=== PATIENT | female | born 1995 | race African-American/Black ===

== ENCOUNTER 2018-12-20 15:04 | Emergency (ER) | payer MEDICAID ==
[~2018-12-20] VITALS: Ht 154.9 cm; Wt 54.4 kg
[~2018-12-20 15:04] MED LIST: CIPROFLOXACIN500 M2 ORAL; IBUPROFEN200 MG ORAL; NORCO 5-325 TA1 EACH ORAL; VALIUM5 MG ORAL
[2018-12-20 15:30] VITALS: BP 110/70
--- NOTE | 2018-12-20 15:47 | NUR ---
ED Nurse Note: walked in to ED due to swelling on vaginal for 2 days. per pt, no discharge but painful pt stated that she feels a bump on her vagina, painful when pressed. will continue to monitor.
--- NOTE | 2018-12-20 16:04 | Emergency Room Report ---
History of Present Illness General Chief Complaint: Vaginal Source: Medical Record Present Illness HPI 23 YO female presents to the ED C/O 03/14 in severity swelling and tenderness to an area in the groin/vaginal area x 2 days. pt. denies fevers or chills. She denies dysuria, hematuria or urinary frequency. She denies vaginal d/c or suspicion for STI, Denies open sores or rashes. She denies suspicion for and states she is currently on her period. Denies abdominal pain or tenderness. Denies n/f/c/d. Pt. reports pain is exacerbated with bearing down or sitting and leaning forward. Denies low back pain. Pt. also reports of several itchy insect bites on her UE's x 1 day. Allergies: Coded Allergies: BANANA (Unverified Allergy, Unknown, 07/02/14) Patient History Past Medical History: see triage record Past Surgical History: none Pertinent Family History: none Last Menstrual Period: 12/18/18 Now: No Reviewed Nursing Documentation: PMH: Agreed; PSxH: Agreed Nursing Documentation-PMH Past Medical History: No History, Except For Hx Asthma: Yes Review of Systems All Other Systems: negative except mentioned in HPI Physical Exam Vital Signs Date Time Temp Pulse Resp B/P (MAP) Pulse Ox O2 Delivery O2 Flow Rate FiO2 12/20/18 15:09 98.2 91 16 97 Room Air 12/20/18 15:30 110/70 Sp02 EP Interpretation: reviewed, normal General Appearance: no apparent distress, alert, GCS 15, non-toxic Head: normocephalic, atraumatic Eyes: bilateral eye normal inspection, bilateral eye PERRL ENT: hearing grossly normal, normal voice Neck: full range of motion Respiratory: lungs clear, normal breath sounds, speaking full sentences Cardiovascular #1: regular rate, rhythm Gastrointestinal: normal bowel sounds, non tender, soft, non-distended, no guarding Genitourinary: normal inspection, no CVA tenderness, adnexa normal, ext genitalia/vag normal, other - swelling and induration palpated about the urethra , most predominantly just under the meatus. no obvious vaginal involvement. no d /c. noted. Musculoskeletal: back normal, gait/station normal, normal range of motion, non- tender Neurologic: alert, oriented x3, responsive, motor strength/tone normal, sensory intact, speech normal, grossly normal Psychiatric: judgement/insight normal Skin: normal color, no rash, warm/dry, well hydrated Lymphatic: no adenopathy Medical Decision Making PA Attestation Dr. Pham is my supervising Physician whom patient management has been discussed with. Diagnostic Impression: Primary Impression: Navassa's gland inflammation ER Course 23 YO female presents to the ED C/O 03/14 in severity swelling and tenderness to an area in the groin/vaginal area x 2 days. pt. denies fevers or chills. She denies dysuria, hematuria or urinary frequency. She denies vaginal d/c or suspicion for STI, Denies open sores or rashes. She denies suspicion for and states she is currently on her period. Denies abdominal pain or tenderness. Denies n/f/c/d. Pt. reports pain is exacerbated with bearing down or sitting and leaning forward. Denies low back pain. Pt. also reports of several itchy insect bites on her UE's x 1 day. Ddx considered but are not limited to UTi , Pyelo, STI, Stone, Cystitis, vaginal laceration, vaginitis, Bartholin's gland abscess, cyst. prolapsed urethra, Navassa's gland inflammation/ infection just to name a few. Vital signs: are WNL, pt. is afebrile H& PE are most consistent with: Inflamed Navassa's Gland. in addition to non- infected insect bites with localized allergic reaction. ORDERS: - UA labs are attached - Elevated WBC's with few bacteria and moderate squamous cells. ED INTERVENTIONS: -Consulted With Dr. Natarajan ( urology) -- suggested treating for pathogens which cause urinary infection. -I do not identify an emergent condition at this time. With current presentation , pt. is stable for close outpatient follow up and conservative treatment. D/ w pt. to return promptly to ED with worsening or new symptoms.- Pt. verbalizes' understanding and agreement with proposed treatment plan.proposed treatment plan. DISCHARGE: At this time pt. is stable for d/c to home. Will provide printed patient care instructions, and any necessary prescriptions. Care plan and follow up instructions have been discussed with the patient prior to discharge. discussed with the patient prior to discharge. Labs Test 12/20/18 16:00 Urine Color Brenda Urine Appearance Clear Urine pH 6 (4.5-8.0) Urine Specific [place] 1.020 (1.005-1.035) Urine Protein Negative (NEGATIVE) Urine Glucose (UA) Negative (NEGATIVE) Urine Ketones Negative (NEGATIVE) Urine Blood Negative (NEGATIVE) Urine Nitrite Negative (NEGATIVE) Urine Bilirubin Negative (NEGATIVE) Urine Ictotest Negative (NEGATIVE) Urine Urobilinogen Normal MG/DL (0.0-1.0) Urine Leukocyte Esterase 1+ (NEGATIVE) Urine RBC 0 /HPF (0 - 2) Urine WBC 5-10 /HPF (0 - 2) Urine Squamous Epithelial Cells Moderate /LPF (NONE/OCC) Urine Bacteria Few /HPF (NONE) Urine Mucus Few /LPF (NONE/OCC) Last Vital Signs Date Time Temp Pulse Resp B/P (MAP) Pulse Ox O2 Delivery O2 Flow Rate FiO2 12/20/18 15:30 98.2 78 16 110/70 97 Room Air Disposition: HOME, SELF-CARE Condition: Stable Scripts Hydrocortisone 2% Cream (ANTI-ITCH 2% CREAM) Y Cr 1 APPLIC TP TID, #28 GM Prov: Kitty Obando 12/20/18 Naproxen* (NAPROXEN*) 500 Mg Tablet 500 MG ORAL TWICE A WEEK for 7 Days, #14 TAB 0 Refills Prov: Kitty Obando 12/20/18 Nitrofurantoin Monohyd/M-Cryst* (MACROBID 100 MG*) 100 Mg Capsule 100 MG ORAL EVERY 12 HOURS for 5 Days, #10 CAP Prov: Kitty Obadno 12/20/18 Additional Instructions: Take medications as directed. Follow up with a OBGYN within 3-5 days, even if your symptoms have resolved. Return sooner to ED if new symptoms occur, or current symptoms become worse. - Please note that this Emergency Department Report was dictated using [employer] and pressing supervisor technology software, occasionally this can lead to erroneous entry secondary to interpretation by the dictation equipment. Kitty Obando December 20, 2018 16:04
--- NOTE | 2018-12-20 16:08 | NUR ---
ED Nurse Note: seen by rosi eugene pt able to give urine specimen and was sent to lab.
[2018-12-20 16:40] LABS: APPEARANCE,URINE CLEAR; BILIRUBIN, URINE NEGATIVE (NEGATIVE); GLUCOSE, URINE (UA) NEGATIVE (NEGATIVE); KETONES,URINE NEGATIVE (NEGATIVE); LEUKOCYTE ESTERASE ,URINE 1+ (NEGATIVE); NITRITE,URINE NEGATIVE (NEGATIVE); PH,URINE 6 (4.5-8.0); PROTEIN,URINE NEGATIVE (NEGATIVE); UROBILINOGEN,URINE NORMAL MG/DL (0.0-1.0)
[2018-12-20 16:59] LABS: COLOR,URINE AMBER
[2018-12-20] MEDS ORDERED: NAPROXEN500 M2 ORAL (17:03)
[2018-12-20] MEDS ORDERED: NITROFURANTOIN100 M2 ORAL (17:03)
[2018-12-20] MEDS ORDERED: ANTI-ITCH28 G1 TP (17:11)
[2018-12-20 17:21] VITALS: BP 115/75
--- NOTE | 2018-12-20 17:21 | NUR ---
ER DISCHARGE NOTE: Patient is cleared to be discharged per ERMD, pt is aox4, on room air, with stable vital signs. pt was given dc and prescription instructions, pt was able to verbalize understanding, pt id band removed without complications. pt is able to ambulate with steady gait. pt took all belongings.
== END 2018-12-20 17:21 | disposition home or self-care (01) ==
LOC: EMR 15:44
DX: N34.2 Other urethritis (principal); Z91.018 Allergy to other foods
CPT/HCPCS: 81003; 99283

== ENCOUNTER 2019-03-10 18:38 | Emergency (ER) | payer MEDICAID ==
[~2019-03-10] VITALS: Ht 154.9 cm; Wt 54.4 kg
[~2019-03-10 18:38] MED LIST changes: +ANTI-ITCH28 G1 TP; +NAPROXEN500 M2 ORAL; +NITROFURANTOIN100 M2 ORAL
--- NOTE | 2019-03-10 18:55 | NUR ---
ED Nurse Note: Patient walked into ED c/o vaginal pain and swelling for 2 days. patient also reports white, yellow discharge. patient is alert awake x4 ambulatory.
[2019-03-10 19:26] LABS: APPEARANCE,URINE CLEAR; BILIRUBIN, URINE NEGATIVE (NEGATIVE); COLOR,URINE PALE YELLOW; GLUCOSE, URINE (UA) NEGATIVE (NEGATIVE); KETONES,URINE 1+ (NEGATIVE); LEUKOCYTE ESTERASE ,URINE 3+ (NEGATIVE); NITRITE,URINE NEGATIVE (NEGATIVE); PH,URINE 6.5 (4.5-8.0); PROTEIN,URINE 3+ (NEGATIVE); UROBILINOGEN,URINE 1 MG/DL (0.0-1.0)
[2019-03-10] MEDS ORDERED: NITROFURANTOIN100 M2 ORAL (20:05)
--- NOTE | 2019-03-10 20:05 | Emergency Room Report ---
History of Present Illness General Chief Complaint: Female Urogenital Problems Source: Patient Present Illness HPI 24-year-old female presents to the emergency department complaining of 7 out of 10 severity vaginal pain, swelling and purulent discharge x 2 days. She denies and states that she is just ending her period. She denies fevers or chills. She has no suspicion for STI. Denies external vaginal lesions, rashes or swollen tender lymph nodes. Pt with hx of infected [place]'s gland which she was seen for almost two months ago. Pt. reports she never followed up with [facility] or urology. No other aggravating or relieving factors at this time. Allergies: Coded Allergies: BANANA (Unverified Allergy, Unknown, 07/02/14) Patient History Past Medical History: see triage record Past Surgical History: none Pertinent Family History: none Last Menstrual Period: 03/09/2019 Now: No Immunizations: UTD Reviewed Nursing Documentation: PMH: Agreed; PSxH: Agreed Nursing Documentation-PMH Past Medical History: No History, Except For Hx Asthma: Yes Review of Systems All Other Systems: negative except mentioned in HPI Physical Exam Vital Signs Date Time Temp Pulse Resp B/P (MAP) Pulse Ox O2 Delivery O2 Flow Rate FiO2 03/10/19 18:49 99.1 77 15 108/71 (83) 100 Room Air Sp02 EP Interpretation: reviewed, normal General Appearance: no apparent distress, alert, GCS 15, non-toxic Head: normocephalic, atraumatic Eyes: bilateral eye normal inspection, bilateral eye PERRL ENT: hearing grossly normal, normal voice Neck: full range of motion Respiratory: chest non-tender, lungs clear, normal breath sounds, speaking full sentences Cardiovascular #1: regular rate, rhythm Gastrointestinal: normal bowel sounds, non tender, soft, non-distended, no guarding Genitourinary: normal inspection, no CVA tenderness, adnexa normal, bladder normal, cervix normal, ext genitalia/vag normal, other - scant blood in the vaginal vault- dark brown in color, with mild amount of white vaginal d/c, no swelling/mass/cyst or abscess noted. Musculoskeletal: gait/station normal, normal range of motion, non-tender Neurologic: alert, oriented x3, responsive, motor strength/tone normal, sensory intact, speech normal, grossly normal Psychiatric: judgement/insight normal Skin: no rash Lymphatic: no adenopathy Medical Decision Making PA Attestation Dr. Lopez is my supervising Physician whom patient management has been discussed with. Diagnostic Impression: Primary Impression: UTI (urinary tract infection) Qualified Codes: N30.01 - Acute cystitis with hematuria Additional Impression: Bacterial vaginosis ER Course 24-year-old female presents to the emergency department complaining of 7 out of 10 severity vaginal pain, swelling and purulent discharge x 2 days. She denies and states that she is just ending her period. She denies fevers or chills. She has no suspicion for STI. Denies external vaginal lesions, rashes or swollen tender lymph nodes. Pt with hx of infected [place]'s gland which she was seen for almost two months ago. Pt. reports she never followed up with [facility] or urology. No other aggravating or relieving factors at this time. Ddx considered but are not limited to UTi , Pyelo, STI, Stone, Cystitis Vital signs: are WNL, pt. is afebrile H&PE are most consistent with BV or UTI. no visible skene's gland in comparison to last visit. ORDERS: - UA labs are attached --Bacteria and elevated inflammatory markers -[place]et [place]: Few clue cells, many bacteria and WBC's no yeast or trich. ED INTERVENTIONS: None required at this time. DISCHARGE: At this time pt. is stable for d/c to home. Will provide printed patient care instructions, and any necessary prescriptions. Care plan and follow up instructions have been discussed with the patient prior to discharge. Labs Test 03/10/19 19:11 Urine Color Pale yellow Urine Appearance Clear Urine pH 6.5 (4.5-8.0) Urine Specific [place] 1.020 (1.005-1.035) Urine Protein 3+ (NEGATIVE) Urine Glucose (UA) Negative (NEGATIVE) Urine Ketones 1+ (NEGATIVE) Urine Blood 5+ (NEGATIVE) Urine Nitrite Negative (NEGATIVE) Urine Bilirubin Negative (NEGATIVE) Urine Urobilinogen 1 MG/DL (0.0-1.0) Urine Leukocyte Esterase 3+ (NEGATIVE) Urine RBC 10-15 /HPF (0 - 2) Urine WBC 30-40 /HPF (0 - 2) Urine Squamous Epithelial Cells Few /LPF (NONE/OCC) Urine Bacteria Many /HPF (NONE) Urine HCG, Qualitative Negative (NEGATIVE) Labs Test 03/10/19 19:11 Urine Color Pale yellow Urine Appearance Clear Urine pH 6.5 (4.5-8.0) Urine Specific [place] 1.020 (1.005-1.035) Urine Protein 3+ (NEGATIVE) Urine Glucose (UA) Negative (NEGATIVE) Urine Ketones 1+ (NEGATIVE) Urine Blood 5+ (NEGATIVE) Urine Nitrite Negative (NEGATIVE) Urine Bilirubin Negative (NEGATIVE) Urine Urobilinogen 1 MG/DL (0.0-1.0) Urine Leukocyte Esterase 3+ (NEGATIVE) Urine RBC 10-15 /HPF (0 - 2) Urine WBC 30-40 /HPF (0 - 2) Urine Squamous Epithelial Cells Few /LPF (NONE/OCC) Urine Bacteria Many /HPF (NONE) Urine HCG, Qualitative Negative (NEGATIVE) Last Vital Signs Date Time Temp Pulse Resp B/P (MAP) Pulse Ox O2 Delivery O2 Flow Rate FiO2 03/10/19 18:49 99.1 77 15 108/71 (83) 100 Room Air Disposition: HOME, SELF-CARE Condition: Stable Scripts Metronidazole* (FLAGYL*) 500 Mg Tablet 500 MG ORAL BID for 5 Days, #10 TAB Prov: Kitty Obando 03/10/19 Nitrofurantoin Monohyd/M-Cryst* (MACROBID 100 MG*) 100 Mg Capsule 100 MG ORAL EVERY 12 HOURS for 5 Days, #10 CAP Prov: Kitty Obando 03/10/19 Patient Instructions: Urinary Tract Infection Additional Instructions: Take medications as directed. Follow up with a [facility] within 3 days, even if your symptoms have resolved. * * Return sooner to ED if new symptoms occur, or current symptoms become worse. - Please note that this Emergency Department Report was dictated using [employer] closer technology software, occasionally this can lead to erroneous entry secondary to interpretation by the dictation equipment. Kitty Obando Mar 10, 2019 20:05
[2019-03-10 20:15] VITALS: BP 108/71
--- NOTE | 2019-03-10 20:15 | NUR ---
ER DISCHARGE NOTE: Patient is cleared to be discharged per [facility], pt is aox4, on room air, with stable vital signs. pt was given dc and prescription instructions, pt was able to verbalize understanding, pt id band removed without complications. pt is able to ambulate with steady gait. pt took all belongings.
[2019-03-10] MEDS ORDERED: METRONIDAZOLE500 MG ORAL ×2 (20:26→21:14)
== END 2019-03-10 20:15 | disposition home or self-care (01) ==
LOC: EMR 19:26
DX: N30.01 Acute cystitis with hematuria (principal); N76.0 Acute vaginitis; Z91.018 Allergy to other foods
CPT/HCPCS: 81003; 81025; 87086; 87181; 87210; 99283

== ENCOUNTER 2019-03-30 21:00 | Emergency (ER) | payer MEDICAID ==
[~2019-03-30] VITALS: Ht 154.9 cm; Wt 53.5 kg
[~2019-03-30 21:00] MED LIST changes: +METRONIDAZOLE500 MG ORAL
[2019-03-30 22:05] VITALS: BP 118/76
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
[2019-03-30 22:30] VITALS: BP 118/76
--- NOTE | 2019-03-30 22:30 | NUR ---
ED Nurse Note: Pt cleared by health care Provider for discharge. DC instructions/prescription was given and explained to pt and verbalized understanding of teachings. All medical deviecs such as ID band removed. Pt is AAO x4, ambulatory and left with all personal belongings.
== END 2019-03-30 23:00 | disposition home or self-care (01) ==
LOC: EMR 22:40
DX: S01.81XD Laceration without foreign body of other part of head, subsequent encounter (principal); Z48.02 Encounter for removal of sutures; J45.909 Unspecified asthma, uncomplicated; Z91.018 Allergy to other foods; V99.XXXD Unspecified transport accident, subsequent encounter
CPT/HCPCS: 99281

== ENCOUNTER 2019-05-01 23:39 | Emergency (ER) | payer MEDICAID ==
[~2019-05-01] VITALS: Ht 154.9 cm; Wt 52.2 kg
[2019-05-01 23:55] VITALS: BP 114/73
--- NOTE | 2019-05-01 23:55 | NUR ---
ED Nurse Note: Pt walked in to ER c/o vaginal pain due to using tampons. Patient stated vaginal swelling and feels that something is inside like a "ball". Stated that she had this symptoms before for the past 3 menstrual cycle. Patient denies any discharges at this time. Alert and oriented, verbally responsive. Breathing even and unlabored. No SOB. Afebrile. VSS. S/O at bedside.
--- NOTE | 2019-05-02 00:19 | Emergency Room Report ---
History of Present Illness General Chief Complaint: Female Urogenital Problems Source: Patient Present Illness HPI Patient presents with complaints of vaginal irritation reports that she feels a swelling in that area Patient reports that this happens with her menstrual cycle after using a tampon this is the third time is happened patient has not seen a party supply specialist since the initial symptoms Denies any fevers or chills denies any dysuria frequency denies any vaginal discharge Allergies: Coded Allergies: BANANA (Unverified Allergy, Unknown, 07/02/14) Patient History Past Medical History: see triage record Last Menstrual Period: 04/27/2019 Now: No Reviewed Nursing Documentation: PMH: Agreed; PSxH: Agreed Nursing Documentation-PMH Hx Asthma: Yes Review of Systems All Other Systems: negative except mentioned in HPI Physical Exam Vital Signs Date Time Temp Pulse Resp B/P (MAP) Pulse Ox O2 Delivery O2 Flow Rate FiO2 05/01/19 23:49 98.1 78 16 114/73 (87) 98 Room Air Sp02 EP Interpretation: reviewed, normal General Appearance: well appearing, no apparent distress Head: normocephalic, atraumatic Eyes: bilateral eye PERRL, bilateral eye EOMI ENT: hearing grossly normal, normal pharynx, TMs + canals normal, uvula midline Neck: full range of motion, supple, no meningismus, no bony tend Respiratory: lungs clear, normal breath sounds, no rhonchi, no respiratory distress, no retraction, no accessory muscle use Cardiovascular #1: normal peripheral pulses, regular rate, rhythm, no edema, no gallop, no JVD, no murmur Gastrointestinal: normal bowel sounds, non tender, soft, no mass, no organomegaly, non-distended, no guarding, no hernia, no pulsatile mass, no rebound Genitourinary: no CVA tenderness, other - Manual vaginal exam with female nurse at bedside reveals, small palpable Bartholin cyst in the right lower vaginal area, no obvious erythema no fluctuance Musculoskeletal: normal inspection Neurologic: oriented x3, responsive, personnel security assistant III-XII nml as tested, motor strength/ tone normal, sensory intact Psychiatric: mood/affect normal Skin: no rash Lymphatic: normal inspection, no adenopathy Medical Decision Making Diagnostic Impression: Primary Impression: Bartholin gland cyst ER Course Patient findings and exam are consistent with small cyst Patient reports that she has had this on several occasions Requires Gynecological consultation urgently and will follow closely At this time there is no signs of any infection or abscess Last Vital Signs Date Time Temp Pulse Resp B/P (MAP) Pulse Ox O2 Delivery O2 Flow Rate FiO2 05/01/19 23:49 98.1 78 16 114/73 (87) 98 Room Air Status: improved Disposition: HOME, SELF-CARE Condition: Stable Scripts Hydrocortisone/Aloe Vera 1%* (HYDROCORTISONE-ALOE 1% CREAM*) Y Cr 1 APPLIC TOPIC Q12HR PRN for Itching for 5 Days, #30 GM Prov: Simone Pham DO 05/02/19 Nitrofurantoin Monohyd/M-Cryst* (MACROBID 100 MG*) 100 Mg Capsule 100 MG ORAL EVERY 12 HOURS for 7 Days, CAP Prov: Simone Pham DO 05/02/19 Additional Instructions: Patient is provided with the discharge instructions notified to follow up with primary doctor in the next 2-3 days otherwise return to the er with any worsening symptoms. Please note that this report is being documented using [employer] technology. This can lead to erroneous entry secondary to incorrect interpretation by the dictating instrument. Simone Pham DO May 02, 2019 00:18
[2019-05-02] MEDS ORDERED: HYDROCORTISONE-30 GM TOPIC (00:44)
[2019-05-02] MEDS ORDERED: NITROFURANTOIN100 M2 ORAL (00:44)
[2019-05-02 00:47] VITALS: BP 114/73
--- NOTE | 2019-05-02 00:47 | NUR ---
ED Nurse Note: Pt cleared by ERMD for discharge. DC instructions/prescription was given and explained to pt and verbalized understanding of teachings. All medical devices such as ID band removed. Pt is AAO x4, ambulatory and left with all personal belongings. Accompanied by S/O.
== END 2019-05-02 00:47 | disposition home or self-care (01) ==
LOC: EMR 23:59
DX: N75.0 Cyst of Bartholin's gland (principal); J45.909 Unspecified asthma, uncomplicated; Z91.018 Allergy to other foods
CPT/HCPCS: 99282

== ENCOUNTER 2019-11-02 05:46 | Emergency (ER) | payer MEDICAID ==
[~2019-11-02] VITALS: Ht 154.9 cm; Wt 58.1 kg
[~2019-11-02 05:46] MED LIST changes: +HYDROCORTISONE-30 GM TOPIC
--- NOTE | 2019-11-02 06:07 | Emergency Room Report ---
History of Present Illness General Chief Complaint: General Complaint Source: Patient Present Illness HPI 24-year-old female with no past medical history she presents with chief complaint of feeling nauseous and wants to confirm . Last menstruation was in September. She did not have her menstruation this month. She checked a home test was positive. She actually called here asking for for us to confirm her . Nursing staff told her that her test at home is no different than here. She did believe that so she came in. She denies any abdominal pain. Stated that she felt nauseous and occasional vomiting. No diarrhea. No chest pain. No urinary complaint. No vaginal bleeding. Allergies: Coded Allergies: BANANA (Unverified Allergy, Unknown, 07/02/14) COVID-19 Screening Contact w/high risk pt: No Recent Travel to affected area: No Experienced COVID-19 symptoms?: No Patient History Past Medical History: see triage record, old chart reviewed Past Surgical History: none Pertinent Family History: none Social History: Denies: smoking Last Menstrual Period: 09/24 Now: Yes Immunizations: other Reviewed Nursing Documentation: PMH: Agreed; PSxH: Agreed Nursing Documentation-PMH Hx Asthma: Yes Review of Systems Eye: Denies: eye pain, blurred vision ENT: Denies: ear pain, nose congestion, throat swelling Respiratory: Denies: cough, shortness of breath Cardiovascular: Denies: chest pain, palpitations Gastrointestinal: Reports: nausea; Denies: abdominal pain, diarrhea, vomiting Musculoskeletal: Denies: back pain, joint pain Skin: Denies: rash Neurological: Denies: headache, numbness Endocrine: Denies: increased thirst, increased urine Hematologic/Lymphatic: Denies: easy bruising All Other Systems: negative except mentioned in HPI Physical Exam Vital Signs Date Time Temp Pulse Resp B/P (MAP) Pulse Ox O2 Delivery O2 Flow Rate FiO2 11/02/19 05:48 98.2 74 18 115/72 (86) 96 Room Air Vitals normal Sp02 EP Interpretation: reviewed, normal General Appearance: well appearing, no apparent distress, alert Head: normocephalic, atraumatic Eyes: bilateral eye PERRL, bilateral eye EOMI ENT: hearing grossly normal, normal pharynx Neck: full range of motion, supple, no meningismus Respiratory: chest non-tender, lungs clear, normal breath sounds Cardiovascular #1: regular rate, rhythm, no murmur Gastrointestinal: normal bowel sounds, non tender, no mass, no organomegaly, no bruit, non-distended Musculoskeletal: back normal, normal range of motion, gait/station normal Psychiatric: mood/affect normal Medical Decision Making Diagnostic Impression: Primary Impression: Qualified Codes: Z3A.01 - Less than 8 weeks gestation of ER Course Patient presents with symptoms consistent with and morning sickness. Urinalysis sent to rule out UTI. I see no need for blood work or emergent ultrasound. She has no vaginal bleeding or pain. Last Vital Signs Date Time Temp Pulse Resp B/P (MAP) Pulse Ox O2 Delivery O2 Flow Rate FiO2 11/02/19 05:48 98.2 74 18 115/72 (86) 96 Room Air Status: unchanged Disposition: HOME, SELF-CARE Condition: Stable Referrals: NOT CHOSEN IPA/,REFERRING (PCP) Additional Instructions: Follow-up with your doctor in 2 to 3 weeks. You will need referral to see OB/ [facility]. Return if symptoms worsen or having vaginal bleeding or pain. Benedict Dutta MD Nov 02, 2019 06:07
[2019-11-02 06:08] VITALS: BP 115/72
[2019-11-02 06:15] LABS: APPEARANCE,URINE CLEAR; BILIRUBIN, URINE NEGATIVE (NEGATIVE); COLOR,URINE PALE YELLOW; GLUCOSE, URINE (UA) NEGATIVE (NEGATIVE); KETONES,URINE NEGATIVE (NEGATIVE); LEUKOCYTE ESTERASE ,URINE NEGATIVE (NEGATIVE); NITRITE,URINE NEGATIVE (NEGATIVE); PH,URINE 6.5 (4.5-8.0); PROTEIN,URINE NEGATIVE (NEGATIVE); UROBILINOGEN,URINE NORMAL MG/DL (0.0-1.0)
[2019-11-02 06:33] VITALS: BP 115/72
== END 2019-11-02 06:33 | disposition home or self-care (01) ==
LOC: EMR 06:03
DX: O26.91 Pregnancy related conditions, unspecified, first trimester (principal); Z91.018 Allergy to other foods; Z3A.01 Less than 8 weeks gestation of pregnancy
CPT/HCPCS: 81003; 81025; Z7502; 99282